=== PATIENT | female | born 1975 | race American Indian/Alaskan Native ===

== ENCOUNTER 2018-04-05 16:51 | Emergency (ER) | payer BC ==
[2018-04-05 16:58] VITALS: BP 118/81; PULSE 65; RESP 18; TEMP 98.4; O2SAT 99
--- NOTE | 2018-04-05 17:34 | RAD ---
Date of service: 04/05/2018 PROCEDURE: Left Ankle Radiographs. HISTORY: Trauma COMPARISON: None FINDINGS: BONES: Bone alignment and mineralization are normal. There is no acute displaced fracture or bone destruction. JOINTS: Normal. No osteoarthritis. Ankle mortise maintained. Talar dome intact SOFT TISSUES: There is mild medial soft tissue swelling. OTHER FINDINGS: None. IMPRESSION: No acute fracture or dislocation. Mild medial soft tissue swelling.
--- NOTE | 2018-04-05 18:14 | ED PDOC ---
Lower Extremity Pain/Injury Time Seen by Provider: 04/05/18 16:58 Chief Complaint (Nursing): Lower Extremity Problem/Injury Chief Complaint (Provider): Left Ankle Pain History Per: Patient History/Exam Limitations: no limitations Onset/Duration Of Symptoms: Days (x1) Current Symptoms Are (Timing): Still Present Additional Complaint(s): 42 year old female presents to the ED for evaluation of a left ankle injury. Patient states that yesterday she tripped while going down the stairs and twisted her left ankle, now reporting pain to the area. Denies numbness, tingling, and other injury. PMD: Lino Lees Past Medical History Reviewed: Historical Data, Nursing Documentation, Vital Signs Vital Signs: Last Vital Signs Temp 98.4 F 04/05/18 16:55 Pulse 65 04/05/18 16:55 Resp 18 04/05/18 16:55 BP 118/81 04/05/18 16:55 Pulse Ox 99 04/05/18 16:55 - Medical History PMH: Anxiety, Asthma, Depression, Gastritis, GERD Denies: Chronic Kidney Disease - Surgical History Surgical History: No Surg Hx - Family History Family History: States: Unknown Family Hx - Social History Current smoker - smoking cessation education provided: No Alcohol: Social Drugs: Denies - Home Medications Home Medications: Ambulatory Orders Medication Instructions Recorded Albuterol Sulfate [Albuterol Hfa] 0.09 mg IH PRN PRN 11/20/14 RX: Naproxen [Naprosyn] 500 mg PO BID PRN #14 tab 04/05/18 - Allergies Allergies/Adverse Reactions: Allergies Allergy/AdvReac Type Severity Reaction Status Date / Time No Known Allergies Allergy Verified 01/21/16 11:23 Review of Systems ROS Statement: Except As Marked, All Systems Reviewed And Found Negative Musculoskeletal: Positive for: Other (left ankle pain) Neurological: Negative for: Numbness (or tingling) Physical Exam - Reviewed Nursing Documentation Reviewed: Yes Vital Signs Reviewed: Yes - Physical Exam Appears: Positive for: No Acute Distress Pulses-Dorsalis Pedis (L): 2+ Pulses-Dorsalis Pedis (R): 2+ Extremity: Positive for: Tenderness (mild to left lateral malleolus; no foot or leg tenderness), Capillary Refill (less than 2 seconds). Negative for: Deformity (to LLE), Swelling (to left lateral malleolus) - ECG O2 Sat by Pulse Oximetry: 99 (RA) Pulse Ox Interpretation: Normal Medical Decision Making Medical Decision Making: Time: 1701 Initial Impression: left ankle pain Initial Plan: --Left ankle XR 1730 XR Impression: No acute fracture or dislocation. Mild medial soft tissue swelling. 1749 Patient informed of XR results and given crutches by utility technician. Advised to follow up with Dr. Elizabeth. Stable for d/c Scribe Attestation: Documented by Georgette Recio, acting as a scribe for Braxton Bangura PA-C. Provider Scribe Attestation: All medical record entries made by the Scribe were at my direction and personally dictated by me. I have reviewed the chart and agree that the record accurately reflects my personal performance of the history, physical exam, medical decision making, and the department course for this patient. I have also personally directed, reviewed, and agree with the discharge instructions and disposition. Disposition - Clinical Impression Clinical Impression: Ankle sprain - Patient ED Disposition Is Patient to be Admitted: No - Disposition Referrals: Zeus Elizabeth III, MD [Staff Provider] - Disposition: Routine/Home Disposition Time: 17:38 Condition: STABLE Additional Instructions: JONO MEDRANO, thank you for letting us take care of you today. Your provider was Dora Chavez MD and you were treated for LT ANKLE, LT FOOT PAIN. The emergency medical care you received today was directed at your acute symptoms. If you were prescribed any medication, please fill it and take as directed. It may take several days for your symptoms to resolve. Return to the Emergency Department if your symptoms worsen, do not improve, or if you have any other problems. Please contact your doctor or call one of the physicians/clinics you have been referred to that are listed on the Patient Visit Information form that is included in your discharge packet. Bring any paperwork you were given at discharge with you along with any medications you are taking to your follow up visit. Our treatment cannot replace ongoing medical care by a primary care provider outside of the emergency department. Thank you for allowing the [facility] team to be part of your care today. If you had an X-Ray or CT scan: A Radiologist will review the ED reading if any change in treatment is needed we will contact you. If you had a blood, urine, or wound culture: It will take several days for the results, if any change in treatment is needed we will contact you. If you had an STI test: It will take 48 hours for the results. Please call after 1 week if you have not heard back. Prescriptions: RX: Naproxen [Naprosyn] 500 mg PO BID PRN #14 tab PRN Reason: Pain Instructions: Ankle Sprain (DC) Forms: [employer] (Croatian), [facility] ED School/Work Excuse Print Language: GUYANESE
== END 2018-04-05 18:02 | disposition home or self-care (01) ==
LOC: H.ER 16:51
DX: S93.402A Sprain of unspecified ligament of left ankle, initial encounter (principal); X50.9XXA Other and unspecified overexertion or strenuous movements or postures, initial encounter; Y92.89 Other specified places as the place of occurrence of the external cause